=== PATIENT | female | born 1975 | race Caucasian/White ===

== ENCOUNTER 2024-05-16 11:07 | Emergency (ER) | payer OTHER ==
[~2024-05-16] VITALS: Ht 167.6 cm; Wt 65.0 kg
[2024-05-16 12:00] LABS: VENOUS BASE EXCESS -5.2 (-2.0-2.0); VENOUS HCO3 20.2 MMOL/L (23.0-27.0); VENOUS O2 SATURATION 81.4 % (60.0-80.0); VENOUS PARTIAL PRESSURE CO2 39.1 mmHg (38.0-50.0); VENOUS PARTIAL PRESSURE O2 47.2 mmHg (30.0-50.0); VENOUS PH 7.331 UNITS (7.330-7.430); VENOUS STANDARD HCO3 19.8 MMOL/L; VENOUS TOTAL CO2 21.4 MMOL/L (24.0-28.0)
[2024-05-16 12:07] LABS: BASO # 0.1 10^3/uL (0.0-0.2); BASO % 0.5 % (0.0-1.0); EOS # 0.1 10^3/uL (0.0-0.5); EOS % 0.7 % (0.0-3.0); HEMATOCRIT 39.1 % (36.0-47.0); HEMOGLOBIN 13.3 g/dl (12.0-15.5); LYMPH # 2.4 10^3/uL (1.5-5.0); LYMPH % 20.9 % (24.0-44.0); MEAN CORPUSCULAR HEMOGLOBIN 32.2 pg (27.0-33.0); MEAN CORPUSCULAR VOLUME 94.7 fl (80.0-96.0); MONO # 0.6 10^3/uL (0.0-0.8); MONO % 5.3 % (2.0-8.0); NEUTROPHILS # 8.2 10^3/uL (1.5-8.5); NEUTROPHILS % 71.9 % (36.0-66.0); PLATELET COUNT, AUTOMATED 287 10^3/uL (150-450); RED BLOOD COUNT 4.13 10^6/uL (4.00-5.40); WHITE BLOOD COUNT 11.4 10^3/uL (4.0-10.0)
[2024-05-16 12:31] LABS: BLOOD UREA NITROGEN 9 MG/DL (9-23); CALCIUM LEVEL 9.3 MG/DL (8.5-10.1); CARBON DIOXIDE LEVEL 24 MMOL/L (20-31); CHLORIDE LEVEL 106 MMOL/L (98-107); CREATININE FOR GFR 0.81 MG/DL (0.55-1.30); GLOMERULAR FILTRATION RATE > 60.0 (>58); GLUCOSE, FASTING 82 MG/DL (60-100); POTASSIUM SERUM 3.9 MMOL/L (3.5-5.1); SODIUM LEVEL 139 MMOL/L (136-145)
[2024-05-16] MEDS ORDERED: IPRATROPIUM 0.5MG/ALBUTEROL 2.5MG INH SOL UD 3ML (DUONEB) NEB ONE (13:15)
[2024-05-16] MEDS ORDERED: PRED10TA2 PO (13:27)
[2024-05-16 13:40] VITALS: BP 134/73; TEMP 97.8; O2SAT 98
== END 2024-05-16 13:41 | disposition home or self-care (01) ==
LOC: M ED 11:07
DX: R05.9 Cough, unspecified (principal); R06.02 Shortness of breath; R94.31 Abnormal electrocardiogram [ECG] [EKG]; Z91.09 Other allergy status, other than to drugs and biological substances; Z79.52 Long term (current) use of systemic steroids